=== PATIENT | female | born 1955 | race Caucasian/White ===

== ENCOUNTER 2018-01-03 11:42 | Inpatient (IN) ==
--- NOTE | 2018-01-02 17:56 | Discharge Summary ---
<Yajaira Carrizales - Last Filed: 01/02/18 17:53> Date of Encounter: 01/02/18 - Discharge Diagnosis (1) Status post total left knee replacement Priority: Primary Status: Acute (2) Arthritis of left knee Priority: Primary Status: Chronic (3) History of peptic ulcer disease Priority: Secondary Status: Chronic - Hospital Course Hospital course: Ms. Caryn Power is a 62 year old female - Time Spent with Patient Total time spent providing and/or coordinating discharge services: - Discharge Medications Home Medications: Aspirin Enteric Coated [Aspirin EC] 325 mg PO BID 10 Days #20 tab 01/02/18 [Rx] Oxycodone HCl 5 mg PO Q6H PRN 7 Days #28 tablet 01/02/18 [Rx] Naproxen Sodium [Aleve] 440 mg PO DAILY PRN 01/03/18 [History] Allergies/Adverse Reactions: 3 Allergy/AdvReac Type Severity Reaction Status Date / Time Minocycline [From Minocin] Allergy HIVES/ITCHI Verified 01/03/18 12:34 NG Sulfa (Sulfonamide Allergy Swelling Verified 01/03/18 12:34 Antibiotics) of Lip/Tongue/Throat Primary care physician: Zuly Moeller CNP - Patient Status Disposition: Home, Self-Care Condition: Good - Discharge Instructions Follow Up With: Zuly Moeller CNP [Primary Care Provider] - Yossi Camacho [Family Provider] - <Asa Paris - Last Filed: 01/04/18 06:20> Orders not resulted at time of discharge: Pending orders 01/03/18 01:00 XR knee LT limited 1-2V [XR] Routine Hemoglobin and Hematocrit [HEME] Routine 01/03/18 12:01 US anesthesia pain block [US] Routine Date of Encounter: 01/04/18 Time of Encounter: 06:20 - Discharge Diagnosis (1) Arthritis of left knee Priority: Primary Status: Chronic (2) Status post total left knee replacement Priority: Primary Status: Acute (3) History of peptic ulcer disease Priority: Secondary Status: Chronic - Hospital Course Hospital course: Ms. Caryn Power is a 62 year old female Status post left total knee replacement The patient had an uneventful postoperative course. They received antibiotics and physical therapy and were discharged in stable condition. There will follow -up in the office in 2 weeks. - Time Spent with Patient Total time spent providing and/or coordinating discharge services: Primary care physician: uZly Moeller CNP - Patient Status Functional capacity at discharge: uses cane/walker Overall status at discharge: patient is progressing back to baseline
[2018-01-03] MEDS ORDERED: *HR* Midazolam HCl 2 MG/2 ML VIAL ONE (11:50)
[2018-01-03] MEDS ORDERED: Ondansetron 4 MG/2 ML VIAL ONE (11:50)
[2018-01-03] MEDS ORDERED: Lidocaine -MPF 2% 2 ML VIAL ONE (11:50)
[2018-01-03] MEDS ORDERED: Dexamethasone 4 MG/ML VIAL ONE (11:50)
[2018-01-03] MEDS ORDERED: *HR* FentaNYL (PF) 100 MCG/2 ML VIAL ONE ×2 (11:50→14:06)
[2018-01-03] MEDS ORDERED: *HR* Propofol 200 MG/20 ML VIAL IVP ONE (11:50)
[2018-01-03] MEDS ORDERED: Famotidine 20 MG/2 ML VIAL IVP ONE (12:01)
[2018-01-03] MEDS ORDERED: Pregabalin 75 MG CAPSULE PO ONE (12:01)
[2018-01-03] MEDS ORDERED: Ringers Solution, Lactated 1,000 ML IVC SCH ×2 (12:15→16:11)
[2018-01-03] MEDS ORDERED: *HR* OxyCODONE Immed Rel 5 MG TABLET PO PRN (12:16)
[2018-01-03] MEDS ORDERED: *HR* Labetalol 100 MG/20 ML MDV IVP PRN (12:16)
[2018-01-03] MEDS ORDERED: MORPHINE SUL Oral CONC 10 MG/0.5 ML ORAL.SYG SL PRN (12:16)
[2018-01-03] MEDS ORDERED: *HR* Promethazine 25 MG/ML VIAL IVP PRN (12:16)
--- NOTE | 2018-01-03 12:18 | History & Physical Report ---
Date of Encounter: 01/03/18 Time of Encounter: 12:17 24 Hour HP Update - Instructions Instructions: If the History and Physical is less than 30 days old and was completed prior to A.M. admission and or procedure and has NOT been updated on calendar day of procedure please complete this update prior to performing procedure. - Update Patient reports changes in Medical Condition: No Changes in examination, assessment, or condition: No Changes in Medication: No Preop tests/diagnostics Reviewed: Yes Surgery Remains Indicated: Yes Consent for Planned Operative Procedure(s) Verified: Yes - Pre-Operative Checklist Preoperative Checklist Indicated: No Prophylactic Antibiotic Ordered: Yes Is VTE Prophylaxis Indicated?: Yes
[2018-01-03] MEDS ORDERED: CeFAZolin Syr 2,000MG/20 ML 2,000 MG/20 ML SYRINGE IVPB ONE (12:19)
--- NOTE | 2018-01-03 12:36 | Anesthesia Evaluation PreOp ---
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: Other (Lumbar Herniated Disc) Other Medical History: GERD, Other (PUD) Anesthesia History: No Prior Anesthetic Complications : No Alcohol Use: none Drug use: none Medications and Allergies Aspirin Enteric Coated [Aspirin EC] 325 mg PO BID 10 Days #20 tab 01/02/18 [Rx] Oxycodone HCl 5 mg PO Q6H PRN 7 Days #28 tablet 01/02/18 [Rx] Naproxen Sodium [Aleve] 440 mg PO DAILY PRN 01/03/18 [History] 3 Allergy/AdvReac Type Severity Reaction Status Date / Time Minocycline [From Minocin] Allergy HIVES/ITCHI Verified 01/03/18 12:34 NG Sulfa (Sulfonamide Allergy Swelling Verified 01/03/18 12:34 Antibiotics) of Lip/Tongue/Throat - Meds/Allergy Pre-op Review Medications Reviewed: Yes Allergies Reviewed: Yes Beta Blockers on Current Med List: No Anesthesia Results - Labs Laboratory Tests 12/20/17 12/20/17 08:47 08:47 Hgb 13.9 Hct 41.1 Plt Count 239 Sodium 139 Potassium 4.2 BUN 17 Creatinine 0.70 - Imaging EKG: report reviewed (SR) Anesthesia Exam Vital Signs/O2 Sat/Glucose, Most Current Temp Pulse Resp BP Pulse Ox 01/03/18 12:10 98.9 F 91 18 139/91 95 Height: 5'6 Weight: 180 lbs NPO (# of Hours): MN Pain Scale: 0 - HEENT Pupil (Motor): Pupils equal, EOMI Mallampati: II Teeth: Normal Oral Opening: Greater than 3 - BUCKLE ATTACHING MACHINE OPERATOR LOC: Oriented BUCKLE ATTACHING MACHINE OPERATOR Motor: Normal RUE, Normal LUE, Normal RLE, Normal LLE, Normal Face BUCKLE ATTACHING MACHINE OPERATOR Sensory: Normal: RUE, LUE, RLE, LLE, Face - Cardiac Rhythm: Regular Murmur: None JVD: No Carotid Bruit: No - Pulmonary Breath Sounds: bilateral Clear Respiratory Effort: Symmetrical Anesthesia Assess/Plan ASA Score: 2 Modified Eugenio Scale for Level of Consciousness: Cooperative, oriented, and tranquil Anesthetic Plan: General, Regional Monitoring Plan: Standard Monitors Recovery Plan: PACU (Discussed GA and Adductor Canal Block, agrees to proceed)
[2018-01-03] MEDS ORDERED: Bupivacaine/Clonidine Syringe 1 EACH SYRINGE ONE ×2 (12:39→13:00)
[2018-01-03] MEDS ORDERED: Ethanol\\Acetic Acid\\Na Ace\\Ben 1,000 ML IRRIG.SOLN IR ONE (12:55)
[2018-01-03] MEDS ORDERED: Propofol 500 MG/50 ML INFUS..BTL ONE ×2 (13:08→14:05)
[2018-01-03] MEDS ORDERED: EPHEDrine 50 MG/ML VIAL ONE (13:35)
[2018-01-03] MEDS ORDERED: Ketorolac 30 MG/ML VIAL ONE (13:47)
--- NOTE | 2018-01-03 13:57 | Anesthesia Procedures ---
Date of Encounter: 01/03/18 Time of Encounter: 13:08 Procedures: Anesthesia - Nerve Block Procedure Date: 01/03/18 Time: 13:08 Surgical Procedure: left total knee, robo assist Checklist: Correct Patient Identifier, Correct procedure, History checked Correct side: Left Blood Thinner: No Monitor Applied: BP, Pulse Oximetry Supplemental Oxygen via Nasal Cannula (L/min): 2 Sedation: Versed (mg): 2 Sedation: Fentanyl (mcg): 100 Indication: Post Op Analgesia Pre-op Neuro Deficits: No Block Type: Other (adductor canal, I-pack) Catheter placed: No Sterile Technique: Yes Ultrasound used: Yes Anatomy identified: Yes Visual spread of Local: Yes Neuro Stimulation: No Blood on Needle Aspiration: No Smooth Injection of Local: Yes Pain with Injection of Local: No Prep: Chlorhexadine Needle: 22 x 50 mm Stimuplex, 21 x 100 mm Stimuplex Local: 0.25% Bupivicaine w/Clonidine 20 mcg/cc (30ml for ipack), Ropivacaine ( 30ml 0.5% rop with 8mg decadron) Volume (cc): 62 Number of Attempts: 1 Complications: None/effective block Vitals: vss though out, block per request of surgeon
--- NOTE | 2018-01-03 14:32 | Orthopedic Operative Note ---
Date of procedure: 01/03/18 Pre-op diagnosis: Left knee arthritis Post-op diagnosis: same Procedure: Procedure: Left robotic-assisted Total knee replacement Estimated blood loss: 200 cc Hardware: Metal and polyethylene replacement. [place] Femur: 4 Tibia: 3 TS insert: 11 Patella: 3 Exam Under anesthesia: 5 degrees flexion contracture 0 degree varus valgus as calculated by the robot full flexion and no instability Procedural Notes: Grade 4 arthritic changes all 3 compartments. Operative procedure: The patient was brought to the operating room and placed on the operating room table. After general anesthesia was administered the operative knee was examined. Findings were noted in the exam under anesthesia. The operative extremity was prepped and draped in sterile surgical fashion. The patient received IV antibiotics prior to skin incision. A standard midline incision was made centered over the patella. The incision was made through the skin and subcutaneous tissue. A medial parapatellar tendon approach was performed. Care was taken to preserve tissue along the medial aspect of the patella. And to protect the patella tendon. The deep MCL was released off the medial tibia. The infra patella fat pad was excised. The patella was everted and cut was made at the level of the insertion of the quadriceps and patella tendon. The patella was sized to a 36 the guide was seated and the lug holes are drilled. Knee was brought into flexion. Patient noted to have grade 4 arthritic changes all 3 compartments. Steinmann pins were placed in the tibia and the femur for the tibial and femoral arrays respectively. Checkpoints were also placed in the tibia and the femur for calculation purposes. The knee including the femur and the tibial registered. Osteophytes, ACL and PCL were excised at this point. Extension and flexion were assessed with a valgus stress components were adjusted on the computer to balance the knee. Femoral cuts were made first with robotic assistance, these included the anterior cut posterior cuts chamfer cuts. Tibial cut was then performed with robotic assistance as well. Bone fragments were removed, as well as the medial and lateral meniscus. The size 4 femoral guide was seated box cut was made lug holes are drilled. The size 3 tibial tray was seated and prepared with the fin cutter. Trial reduction with the 11 TS Dimple revealed extension of 0 degree and 0 degrees varus valgus full flexion. No varus valgus instability. Trial reduction revealed excellent patella tracking. All trial components were removed all bony surfaces were irrigated. The Tibia was seated followed by the femur, The Dimple size 11 was seated and secured patella. Patient had similar findings for motion and stability. The knee was closed by the PA. The knee was then irrigated out with 2 L of pulse irrigation. The extensor mechanism was closed with #2 FiberWire suture and #2 PDS suture. The subcutaneous tissue was then irrigated and closed deep with #1 PDS suture superficially with 0 PDS suture and skin was closed with zip tie The patient was then placed in a sterile dressing and a postoperative brace extubated and transferred to recovery room in stable condition. Anesthesia: spinal Surgeon: Asa Paris Was there an tutoring assistant present: Yes Supervisor Costuming: Yajaira Carrizales Estimated blood loss (cc): 200 Condition: stable Disposition: PACU
[2018-01-03 15:33] LABS: Hematocrit 35.1 % (35.3-44.9); Hemoglobin 11.7 g/dL (11.5-15.4)
--- NOTE | 2018-01-03 15:44 | Anesthesia Evaluation Post Op ---
Date of Encounter: 01/03/18 Time of Encounter: 15:40 - Vital Signs Vital Signs: Vital Signs/O2 Sat/Glucose, Most Current Temp Pulse Resp BP Pulse Ox 01/03/18 15:30 97.2 F L 48 16 129/64 100 01/03/18 15:20 49 16 121/62 100 01/03/18 15:10 58 18 115/56 100 01/03/18 15:00 97.0 F L 53 16 100/52 98 01/03/18 13:26 49 16 82/53 96 01/03/18 13:10 54 12 99/59 98 01/03/18 12:55 65 14 127/77 96 01/03/18 12:50 66 16 139/80 96 01/03/18 12:10 98.9 F 91 18 139/91 95 - Lungs Lungs: Clear Ascult./Percussion - Airway Airway: Non-obstructed - Cardiovascular Regular Rate - Mental Status Mental Status: Alert & Oriented, Answers Appropriately - Pain Pain Scale: 0 - Nausea Vomiting Nausea Vomiting: Not Present - Hydration Hydration: Tolerates oral liquids - Discharge PostOp Status: Transfer Patient to floor
[2018-01-03] MEDS ORDERED: MOM Conc 10 ML UD.LIQ PO PRN (16:11)
[2018-01-03] MEDS ORDERED: Sennosides 8.6 MG TABLET PO PRN (16:11)
[2018-01-03] MEDS ORDERED: Temazepam 15 MG CAPSULE PO PRN (16:11)
[2018-01-03] MEDS ORDERED: traMADol 50 MG TABLET PO PRN (16:11)
[2018-01-03] MEDS ORDERED: Ondansetron 4 MG/2 ML VIAL IVP PRN (16:11)
[2018-01-03] MEDS ORDERED: Naloxone 0.4 MG/ML INJ IVP PRN (16:11)
[2018-01-03] MEDS ORDERED: *HR* OxyCODONE/APAP 5/325 TABLET PO PRN (16:11)
[2018-01-03] MEDS ORDERED: *HR* Enoxaparin 30 MG/0.3 ML SYRINGE SQ SCH (18:00)
[2018-01-03] MEDS: *HR* Enoxaparin 30 MG/0.3 ML SYRINGE SQ SCH (18:24)
[2018-01-04 02:09] LABS: Hematocrit 32.6 % (35.3-44.9); Hemoglobin 10.7 g/dL (11.5-15.4)
[2018-01-04 02:27] LABS: BUN/Creatinine Ratio 23 (6-26); Blood Urea Nitrogen 16 mg/dL (8-23); Calcium 8.8 mg/dL (8.6-10.3); Carbon Dioxide 25 mEq/L (23-29); Chloride 103 mEq/L (98-107); Glucose 125 mg/dL (70-105); Osmolality,Calculated 285 (280-300); Sodium 136 mEq/L (136-145); eGFR For African Americans > 60 (> 60); eGFR For Non-African Americans > 60 (> 60)
[2018-01-04] MEDS: *HR* OxyCODONE Immed Rel 5 MG TABLET PO PRN ×3 (04:35→15:06)
[2018-01-04] MEDS: *HR* Enoxaparin 30 MG/0.3 ML SYRINGE SQ SCH (04:36)
--- NOTE | 2018-01-04 11:42 | Orthopedics Progress Note ---
Date of Encounter: 01/04/18 Time of Encounter: 11:41 - Assessment and Plan (1) Status post total left knee replacement Status: Acute (2) Arthritis of left knee Status: Chronic (3) History of peptic ulcer disease Status: Chronic Subjective Principal diagnosis: s/p left total knee Interval history: POD#1 s/p Date of procedure: 01/03/18 Pre-op diagnosis: Left knee arthritis Post-op diagnosis: same Procedure: Procedure: Left robotic-assisted Total knee replacement Patient seen at bedside. Vital signs stable Labwork and medications reviewed. H/H 10.7/32.6 Pain control: Adequate No calf tenderness to palpation. ROM improving. Dressing clean, dry, intact. Participating in PT. All questions and concerns addressed. Educated on use of incentive spirometer, ambulation, and hydration. Patient educated on post-operative restrictions and care. Addressed: see above. D/C plan: OP therapy - d/c today Objective Vital signs: Vital Signs Temp Pulse Resp BP Pulse Ox 01/04/18 07:57 98.1 F 54 12 92/55 96 01/04/18 03:33 98.0 F 55 18 103/61 97 01/03/18 23:45 97.6 F 70 18 96/58 97 01/03/18 19:06 97.7 F 62 16 112/68 94 01/03/18 18:30 97.5 F L 62 16 150/79 100 01/03/18 17:30 97.4 F L 57 16 124/82 100 01/03/18 17:00 97.1 F L 55 16 118/72 100 01/03/18 16:26 97.5 F L 50 16 128/69 100 01/03/18 15:30 97.2 F L 48 16 129/64 100 01/03/18 15:20 49 16 121/62 100 01/03/18 15:10 58 18 115/56 100 01/03/18 15:00 97.0 F L 53 16 100/52 98 01/03/18 13:26 49 16 82/53 96 01/03/18 13:10 54 12 99/59 98 01/03/18 12:55 65 14 127/77 96 01/03/18 12:50 66 16 139/80 96 01/03/18 12:10 98.9 F 91 18 139/91 95 Intake and Output 01/03/18 01/04/18 01/04/18 23:59 07:59 15:59 Intake Total 1170 / 1170 300 / 300 Output Total 300 / 300 Balance 870 / 870 300 / 300 Intake: IV Fluids 1120 / 1120 100 / 100 Lactated Ringers 1,000 ML @ 25 1000 / 1000 mls/hr IVC .Q24H MARIELA Rx#: [id number] Ancef Syringe 2,000 MG/20 ML 2, 20 / 20 000 mg In 20 ml @ 200 mls/hr IVPB PREOP ONE Rx#:[id number] Ancef 2,000 MG In 0.9 % Sodium 100 / 100 100 / 100 Chloride 100 ML @ 200 mls/hr IVPB Q8H MARIELA Rx#:[id number] Oral 50 / 50 200 / 200 Output: Urine 300 / 300 Other: # Voids 1 1 1 - Labs CBC & BMP: 01/04/18 01:05 01/04/18 01:05 Labs: Abnormal lab results Hgb 10.7 g/dL (11.5-15.4) L 01/04/18 01:05 Hct 32.6 % (35.3-44.9) L 01/04/18 01:05 Glucose 125 mg/dL (70-105) H 01/04/18 01:05 - VTE Documentation of Mechanical Device: Venous foot pump, device Consult Discharge Plan - Plan Additional Instructions: Discharge Instructions: Total Knee Replacement Please call [facility] ([phone]), your Primary Care Physician, or report to the Emergency Room if you have any of the following symptoms: Nausea, vomiting, fever greater that 101.5, swelling, chest pain, shortness of breath, increased pain/redness/drainage/odor for your incision site, numbness/ tingling, or any other concerning symptoms. ACTIVITY:Weight-bearing as tolerated. You may progress off support (crutches or walker) as tolerated. MEDICATIONS: Upon discharge resume your home medications. Take all the medications as prescribed. Take a stool softener if taking narcotic pain medications. Stool softeners are only effective if you drink enough fluids. Drink 6-8 glass of water or fluids a day, unless this is not allowed for another health problem. Despite using stool softeners, if you haven't had a bowel movement in 3 days, please switch to a gentle laxative. Gentle laxatives are sold over the counter. You should have a bowel movement within 24 hours, if not call the office. You will be discharged from the hospital with a prescription for pain medication. You are encouraged to decrease the use of narcotic pain medication as tolerated. Should you require a refill, please call the office. [facility] prescribes narcotic pain medication for only 4-6 weeks after surgery. If you require pain medication beyond this time period, you may be referred to your Primary Care Physician or to the Pain Clinic for further evaluation. Plan ahead for refills on pain medication as many narcotics either need to be picked up at the office or mailed. It is best to call 48-72 hours in advance of needing a prescription refill so you don't run out of medication. To help control the post-operative pain, you may take NSAIDs (Aleve,Advil, Motrin, Ibuprofen, Naprosyn) or Tylenol as prescribed on the bottle in addition to the pain medication. ANTICOAGULATION (blood thinners): Continue your Aspirin, Lovenox or Coumadin as prescribed to help prevent a blood clot in the leg or in the lungs. As long as your incision remains dry and you tolerate the NSAIDs (Aleve, Advil, Motrin, ibuprofen, naprosyn), it is OK to use the NSAIDS while you are taking your anticoagulation medication. Should your incision start to drain, stop the NSAID and contact our office. Common symptoms of blood clot in the legs include: localized pain, swelling, calf tenderness, redness or discoloration of the skin. Blood clot in the lung symptoms include: shortness of breath, rapid pulse, sweating, and chest pain that worsens with deep breathing, coughing up blood, lightheadedness, feelings of anxiety. If you experience any of these symptoms notify your physician immediately, go to the emergency room, or if having trouble breathing, call 911. WOUND CARE: Leave the dressing on for 7 to 10days. You may change the dressing if it becomes saturated greater than 50%. Do not get the dressing wet at anytime. Wash your hands with antibacterial soap, rinse and dry prior to any wound care. If you have judy the visiting nurse or rehab facility can remove the stapes 10-14 days after surgery and place steri-strips across the wound. Leave the steri-strips in place until they fall off on their won. You may let water from the shower run on top of the steri-strips. If you do not have a visiting nurse or rehab facility, you will need to return to the office at 10-14 days for the judy to be removed. If you have itching or redness around the dressing call the office. FOLLOW-UP: Please follow up with your surgeon in the orthopedic clinic in 4 weeks from the day of surgery. If you have judy that need to be removed, you will need to come back to the office in 10-14 days from the day of surgery. Referrals: Asa Paris MD [Partnered Physician] - 02/02/18 4:30 pm Jenni Villalobos PAC [Physician Hack Driver] - 01/13/18 8:30 am Zuly Moeller CNP [Primary Care Provider] - Yossi Camacho [Family Provider] -
[2018-01-04 11:55] VITALS: BP 102/66
== END 2018-01-04 15:26 | disposition home or self-care (01) | DRG 470 ==
LOC: SAMDAY 11:42 → 3NENU 16:10
PROVIDERS: ADMIT Orthopaedic Surgery; ATTEND Orthopaedic Surgery